=== PATIENT | male | born 1940 | race Caucasian/White ===

== ENCOUNTER 2019-03-29 10:51 | Day surgery (SDC) | payer MEDICARE, BC ==
[2019-03-27 10:46] VITALS: BMI 23.6
[~2019-03-29 10:51] MED LIST: HYDROmorphone 0.5 MG/0.5 ML SYRINGE IVP PRN; LACTATED RINGERS 1,000 ML IV SCH; LIDOCAINE 1% 20 ML VIAL (10MG/ML) FOR IV START INTRADERMA PRN; MELOXICAM 7.5 MG TAB PO ONE; MIDAZOLAM 2 MG/2 ML VIAL IV PRN; ONDANSETRON 4 MG/2 ML VIAL IVP ONE
[2019-03-29] MEDS ORDERED: DEXAMETHASONE SOD PHOSPHATE 10 MG/ML 1 ML VIAL IV ONE (11:26)
[2019-03-29 11:29] LABS: Glucose,Whole Blood 129 mg/dL (75-99)
[2019-03-29] MEDS ORDERED: MIDAZOLAM 2 MG/2 ML VIAL IV ONE (11:30)
[2019-03-29] MEDS ORDERED: MIDAZOLAM 2 MG/2 ML VIAL ONE (12:34)
[2019-03-29] MEDS ORDERED: DEXAMETHASONE SOD PHOSPHATE 4 MG/ML 1 ML VIAL ONE (12:34)
[2019-03-29] MEDS ORDERED: ROPIVACAINE 5 MG/ML 30 ML VIAL ONE (12:34)
[2019-03-29] MEDS ORDERED: SUCCINYLCHOLINE CHLORIDE 100 MG/5 ML SYR IV ONE (12:34)
[2019-03-29] MEDS ORDERED: NEOSTIGMINE 1 MG/ML 10 ML VIAL ONE (12:34)
[2019-03-29] MEDS ORDERED: LIDOCAINE 1% INJ 10MG/ML (20 ML MDV) ONE (12:34)
[2019-03-29] MEDS ORDERED: ROCURONIUM BROMIDE 10 MG/ML 10 ML VIAL IV ONE (12:34)
[2019-03-29] MEDS ORDERED: ePHEDrine SULFATE/0.9% NACL/PF 50 MG/5 ML SYRINGE IV ONE (12:34)
[2019-03-29] MEDS ORDERED: GLYCOPYRROLATE 0.2 MG/ML 2 ML VIAL ONE (12:34)
[2019-03-29] MEDS ORDERED: fentaNYL (PF) 50 MCG/ML 2 ML AMP ONE (12:34)
[2019-03-29] MEDS ORDERED: PROPOFOL 10 MG/ML 20 ML VIAL IV ONE (12:34)
[2019-03-29] MEDS ORDERED: EPINEPHrine 4 MG in SODIUM CHLORIDE 0.9% IRRIGATIO 3,000 ML IRRIGATION ONE ×8 (13:04)
--- NOTE | 2019-03-29 13:15 | P.ANPRN ---
Procedure Note - Anesthesia - Nerve Block Performed Right Interscalene Single Time Out Performed: Yes Date of Procedure: 06/29/18 Procedure Start Time: : Procedure Stop Time: :38 Location of Patient Procedure: PreOp Indication: Acute Post-Operative Pain, Requested by Surgeon Sedation Type: Sedate with meaningful contact maintained Preparation: Sterile Prep Position: Supine Needle Types: Pajunk Needle Gauge: 21 Ultrasound used to visualize needle placement: Yes Ultrasound used to observe medication spread: Yes Blood Aspirated: No Pain Paresthesia on Injection Noted: No Resistance on Injection: Normal Image Stored and Saved: Yes Events: Uneventful and Well Tolerated (ropi .5% 30cc plus dexamethasone 4mg)
[2019-03-29] MEDS ORDERED: LACTATED RINGERS 1,000 ML IV ONE ×2 (14:18)
--- NOTE | 2019-03-29 14:26 | P.OP ---
Date of Procedure: 03/29/19 Procedure(s) Performed: right shoulder arthroscopy ?[facility] PREOPERATIVE DIAGNOSES: 1. Right shoulder large retracted rotator cuff tear. 2. Chronic impingement syndrome. 3. Acromioclavicular osteoarthritis. 4. Superior labral degenerative tear 5. Long head biceps tendinopathy. POSTOPERATIVE DIAGNOSES: 1. Right shoulder large retracted rotator cuff tear (supraspinatus and infraspinatus, 3.5 cm, retracted past glenoid with poor posterior leaflet mobility). 2. Chronic impingement syndrome. 3. Acromioclavicular osteoarthritis. 4. Labral degenerative tear. 5. Moderate to severe adhesive capsulitis PROCEDURES PERFORMED: 1. Right shoulder arthroscopy with rotator cuff repair (margin convergence with one anchor, partial repair) 2. Arthroscopic partial distal clavicle excision 3. Arthroscopic long head biceps tenotomy 4. Arthroscopic lysis of adhesions with capsular release and manipulation under anesthesia 5. Arthroscopic subacromial decompression 6. Arthroscopic debridement superior labral tear ANESTHESIA: General. ESTIMATED BLOOD LOSS: Less than 25 mL TOURNIQUET: None INFORMATICS ANALYST: Rayna Hernandes PA-C (assistance with: Positioning, retraction, camera operation, repair, closure, dressing) COMPLICATIONS: None. DISPOSITION: To postanesthesia care unit INDICATIONS: Mr. Cohn is a 79 year old male with a history of large rotator cuff tear. MRI was suspicious for a tear with retraction and mild cuff atrophy, and the patient wishes to have it repaired. He understands the difficulties associated with repair of a retracted rotator cuff tear and understands that there is the possibility of being unable to fully repair the tear. I have exami leslie the patient in the office and proposed rotator cuff repair via an arthroscopic or mini-open approach, as well as other procedures to optimize the shoulder and outcome, such as decompression of spurs and debridement of loose or degenerated tissue. I have explained the risks of this surgery as being inclusive of, but not limited to: bleeding, infection, scarring, discomfort, blood vessel and/or nerve damage, need for further surgery, stiffness, persistence or worsening of problems, , and other risks. The consent form has been completed and signed. PROCEDURE: Appropriate consent was obtained from the patient. The patient was taken to the operating room and placed in the supine position. General anesthesia was initiated and after confirmation of adequate anesthesia, the patients right shoulder was examined. Initial range of motion showed flexion to 140 abduction to 140, external rotation to 30 and internal rotation to 30. Using Codman's paradox maneuver, the right shoulder was gently stretched and final range of motion after the stretch was for flexion to 180 , abduction to 180, external rotation to 75, and internal rotation to 75 with the arm at 90 abduction. The shoulder was stable. Next, the patient was rotated into the lateral decubitus position and stabilized to the table with a gruber bag and padded straps. Care was taken to make sure that all pressure points were adequately padded. Bear-hugger was used along with bilateral leg sequential compression devices. Prepping and draping was completed in the usual aseptic fashion using ChloraPrep. The patient received intravenous antibiotics prior to incision. The shoulder was suspended from traction with 10 lbs. of weight in a position of 45 degrees abduction. Landmarks were outlined with a skin marking pen. A spinal needle was inserted into the glenohumeral joint and fluid was administered to distend the joint. A posterior portal was created using an 11 blade and the arthroscopic canula, over a dull trocar, was carefully inserted into the joint. Arthroscopy then commenced. An anterior portal was inserted in the rotator interval area using inside-out technique. Biceps tendon showed severe tendinopathy without full tear. Shaver and radiofrequency was used to tenotomize the long head biceps. Subscapularis and teres minor attachments were relatively normal, for age. Hyaline cartilage of the glenoid and humeral head showed degenerative changes typical for age. Supraspinatus and infraspinatus attachments showed a full-thickness retracted tear, U-shaped. The anterior undersurface of the acromion could clearly be seen through the rotator cuff defect. No loose bodies were noted in the joint. Labrum showed circumferential degenerative changes without significant instability. Superior labrum was well attached. Negative peel back sign. Loose fibers of labrum in all areas were debrided away back to stable labrum. Synovitis was noted superior to the superior labrum and within the rotator interval. This was debrided and removed where the capsule appeared inflamed, using an arthroscopic shaver. Attention was then directed to the subacromial space. The camera and i nstruments were redirected into the subacromial space and bursoscopy was performed. The patients bursa was inflamed and thickened, indicating chronic bursitis. There also appear to be significant degenerative adhesions present within the lateral gutter anterior gutter and posterior gutter. These adhesions were lysed using a shaver and radiofrequency and attention was paid to meticulous hemostasis with the ArthroCare device. A lateral portal was created using outside-in technique. The rotator cuff tear was noted to be a U-shaped tear, with retraction to the level of the mid acromion, with a very deficient anterior leaflet. The posterior leaflet was poorly mobile, and therefore using a combination of angled elevator, shaver, and ArthroCare device, the adhesions between the inferior and superior surfaces of the posterior leaflet/conjoined tendon were released and the mobility of the posterior leaflet improved. The anterior leaflet was composed of moderately deficient tissue, but appeared to be robust enough for a repair. The loose fibers of the tear were debrided back to stable tissue and the defect in the tendon was repaired arthroscopically after careful preparation of the supraspinatus footprint with david and rasp to create a good bleeding surface of bone, see below. The undersurface of the acromion had frictional changes consistent with severe and chronic impingement syndrome. The underside of the acromion anteriorly was cleared of soft tissue using an arthroscopic radiofrequency ablator. Care was taken while using the ablator not to exceed 40 degrees Centigrade within the bursa. The frictional changes of the rotator cuff matched exactly the location of the rotator cuff tear in the critical zone. A formal subacromial decompression was performed using a david. Approximately 4 mm of material was removed from the anterior-inferior corner of the acromion. This resection was beveled upwards laterally, and carried to the AC joint. The AC joint appeared arthritic with inferior spurring. This spurring was removed with a david, co- planing the resection with the acromial resection and removing approximately 4-5 mm of inferior distal clavicle maximally. The rotator cuff tear was then repaired as follows. Preparation of the supraspinatus footprint was performed using hand rasps , david, and shaver. This created a bleeding surface without significant decortication. 2 margin convergence sutures using #2 FiberWire were deployed into the medial portion of the rotator cuff and were tied down using alternating half hitches arthroscopically. This significantly reduced the volume of the tear. Next, the posterior leaflet was repaired using a fiber tape suture deployed into a 4.75 mm swivel lock anchor which was placed in the greater tuberosity. The leaflet was reduced using a tag stitch to mobilize the leaflet as much as possible in a lateral and anterior direction however as previously noted the leaflet had very poor mobility and therefore was not able to fully cover the supraspinatus footprint. Loose cuff material adjacent to the fiber tape was tacked down using the accessory stitch within the anchor. Suture tails were then cut. It was noted that there was complete closure of the cuff defect, and the volume of the tear had been significantly reduced and the posterior leaflet appeared to be well stabilized to the greater tuberosity. The repair was stable to rotation. Subsequently, 4-0 Monocryl was used to close the portal holes. Steri-strips were applied as well as sterile dressing. The shoulder was then placed into a sling and the patient was transferred to recovery room in stable condition. Sponge and needle counts were correct.
[2019-03-29 14:38] VITALS: TEMP 97
[2019-03-29 17:09] VITALS: BP 151/72; PULSE 67; RESP 16
== END 2019-03-29 17:03 | disposition home or self-care (01) ==
LOC: OR 10:51
PROVIDERS: ATTEND Orthopaedic Surgery
DX: M75.101 Unspecified rotator cuff tear or rupture of right shoulder, not specified as traumatic (principal); M75.41 Impingement syndrome of right shoulder; M19.011 Primary osteoarthritis, right shoulder; S43.431A Superior glenoid labrum lesion of right shoulder, initial encounter; X58.XXXA Exposure to other specified factors, initial encounter; M75.21 Bicipital tendinitis, right shoulder; M65.9 Synovitis and tenosynovitis, unspecified; M75.51 Bursitis of right shoulder; M75.01 Adhesive capsulitis of right shoulder; M75.81 Other shoulder lesions, right shoulder; I10 Essential (primary) hypertension; E78.5 Hyperlipidemia, unspecified; E11.9 Type 2 diabetes mellitus without complications; E03.9 Hypothyroidism, unspecified; N40.0 Benign prostatic hyperplasia without lower urinary tract symptoms; E78.00 Pure hypercholesterolemia, unspecified; H91.90 Unspecified hearing loss, unspecified ear; Z97.3 Presence of spectacles and contact lenses; Z86.19 Personal history of other infectious and parasitic diseases; Z82.49 Family history of ischemic heart disease and other diseases of the circulatory system; Z80.0 Family history of malignant neoplasm of digestive organs; Z82.69 Family history of other diseases of the musculoskeletal system and connective tissue; Z79.84 Long term (current) use of oral hypoglycemic drugs; Z79.1 Long term (current) use of non-steroidal anti-inflammatories (NSAID); Z79.82 Long term (current) use of aspirin; Z79.890 Hormone replacement therapy; Z79.899 Other long term (current) drug therapy
CPT/HCPCS: 29826; 29827; 29824; 64415; 76942; C1713; C1894; J0171; J2250; J1100 ×2; J2710; J0690; J2405; J2001; J3010; J2795; J0330; J2704; 64447